=== PATIENT | female | born 1965 | race Caucasian/White ===

== ENCOUNTER → 2017-02-09 | Outpatient (CLI) | payer OTHER ==
[~2017-02-09] MED LIST: AMT10 PO; DIPH25CA65 PO; IBUP-1050 PO; KETO10TA PO; NAPR-1168 PO; ONDA4TAB46 PO; PROC1TAB5 PO; PROM25TA9 PO; RIZA10TA18 PO; SUMA100T16 PO; TOPI25TA55 PO
--- NOTE | 2017-02-09 14:37 | DIAGNOSTIC IMAGING REPORT ---
ULTRASOUND LEFT LOWER EXTREMITY VENOUS CLINICAL HISTORY: Left leg pain. COMPARISON STUDY: No priors. TECHNIQUE: Real-time, grayscale, and color Doppler sonography of the deep veins of the left lower extremity was performed from the inguinal crease to the calf. Compression and augmentation were utilized. FINDINGS: There is no sonographic evidence of deep venous thrombosis identified in the left lower extremity. The common femoral, superficial femoral, and popliteal veins are patent and normally compressible. The greater saphenous vein and the profunda femoris vein at the junction with the common femoral vein are clear. The visualized calf veins are patent. A popliteal cyst measures 5.6 x 1.3 x 2.0 cm. IMPRESSION: 1. There is no sonographic evidence of deep venous thrombosis identified in the left lower extremity. 2. Left popliteal cyst. Electronically signed by: Dickson Jaffe M.D. 02/09/2017 2:35 PM Dictated Date/Time: 02/09/2017 2:35 PM
== END | disposition home or self-care (01) ==
LOC: C.ULTRBC 13:42
PROVIDERS: ATTEND Podiatrist Foot & Ankle Surgery
DX: M76.62 Achilles tendinitis, left leg (principal); M71.22 Synovial cyst of popliteal space [Baker], left knee